=== PATIENT | female | born 1960 | race Two or more races ===

== ENCOUNTER 2019-10-15 09:21 | Emergency (ER) | payer MEDICAID ==
[~2019-10-15] VITALS: Ht 170.2 cm; Wt 86.2 kg
[2019-10-15 09:37] VITALS: BP_SYST 114
[2019-10-15 09:59] VITALS: BP_SYST 114
== END 2019-10-15 09:59 | disposition home or self-care (01) ==
LOC: SED 09:21
DX: L03.818 Cellulitis of other sites (principal)
CPT/HCPCS: 99283